=== PATIENT | female | born 1980 | race Caucasian/White ===

== ENCOUNTER 2021-12-05 10:31 | Outpatient (REF) | payer SELFPAY ==
[2021-12-06 17:56] LABS: COVID-19 RT-PCR UVMMC Result Negative (Negative)
== END 2021-12-05 10:32 | disposition home or self-care (01) ==
LOC: LBN 10:31
PROVIDERS: Visit Provider Physician Assistant
DX: Z20.822 Contact with and (suspected) exposure to COVID-19 (principal)
CPT/HCPCS: U0003